=== PATIENT | female | born 2005 | race Caucasian/White ===

== ENCOUNTER 2024-11-02 15:37 | Emergency (ER) | payer BC ==
[2024-11-02 15:49] VITALS: BP 125/74; PULSE 99; RESP 19; TEMP 98.1; BMI 35.0
[2024-11-02] MEDS ORDERED: IBUPROFEN 400 MG TABLET (FP) PO ONE (16:03)
[2024-11-02] MEDS: IBUPROFEN 400 MG TABLET (FP) PO ONE (16:09)
== END 2024-11-02 18:09 | disposition home or self-care (01) ==
LOC: JERFT 15:37
DX: S92.512A Displaced fracture of proximal phalanx of left lesser toe(s), initial encounter for closed fracture (principal); W23.2XXA Caught, crushed, jammed or pinched between a moving and stationary object, initial encounter; Y92.34 Swimming pool (public) as the place of occurrence of the external cause; Y93.12 Activity, springboard and platform diving
CPT/HCPCS: 73660-TC-LT-FY; 99283-25